=== PATIENT | male | born 1940 | race Asian ===

== ENCOUNTER 2023-03-20 12:37 | Emergency (ER) | payer MEDICARE ==
[~2023-03-20] VITALS: Ht 167.6 cm; Wt 77.3 kg
[2023-03-20 12:44] VITALS: BP 139/63; PULSE 64; RESP 18; TEMP 98.7
[2023-03-20] MEDS ORDERED: METO25 PO (12:51)
[2023-03-20] MEDS ORDERED: LISI-892 PO (12:51)
[2023-03-20] MEDS ORDERED: ASPI-1444 PO (12:51)
== END 2023-03-20 15:23 | disposition home or self-care (01) ==
LOC: EMS 13:34
DX: N47.2 Paraphimosis (principal); I10 Essential (primary) hypertension; Z96.649 Presence of unspecified artificial hip joint; Z98.890 Other specified postprocedural states
CPT/HCPCS: 54450; 99284; Z7502